=== PATIENT | female | born 1935 | race Caucasian/White ===

== ENCOUNTER 2018-01-01 08:20 | Outpatient (CLI) | payer OTHER ==
[~2018-01-01 08:20] MED LIST: ASA81 MG PO; ATENOLOL50 MG PO; MVI- INFUVITE A10 ML IV; ZOCOR40 MG PO
== END 2018-01-01 08:58 ==
LOC: LAB 08:20
DX: R74.8 Abnormal levels of other serum enzymes (principal)